=== PATIENT | female | born 1960 | race Caucasian/White ===

== ENCOUNTER 2016-06-29 12:41 | Emergency (ER) | payer SELFPAY ==
[2016-06-29 13:05] VITALS: TEMP 98
--- NOTE | 2016-06-29 13:11 | ED.PDOC ---
History of Present Illness - General Chief Complaint: General Stated Complaint: right 2nd toe and left 2nd toe pain Time Seen by Provider: 06/29/16 13:04 Source: patient, RN notes reviewed, Vital Signs reviewed Exam Limitations: no limitations - History of Present Illness Initial Comments: Patient comes in with c/o bilateral foot pain that has been going on for a while. Recently her R 2nd toe and L great toe have become more painful and the R second toe has developed an open wound that is oozing clear fluid. Timing/Duration: 1 week Severity: mild Improving Factors: nothing Worsening Factors: movement Associated Symptoms: denies symptoms Allergies/Adverse Reactions: Allergies NO KNOWN ALLERGY Allergy (Verified 06/29/16 12:59) Home Medications: Ambulatory Orders Aspirin [Aspirin Adult Low Dose] 81 mg PO DAILY 02/09/15 Lisinopril 20 mg PO DAILY #30 tab 12/01/15 Review of Systems - Review of Systems Constitutional: States: no symptoms reported Cardiology: Denies: edema Musculoskeletal: States: see HPI Skin: States: see HPI Neurological: States: no symptoms reported Past Medical History (General) - Patient Medical History Hx Seizures: No Hx Stroke: No Hx Dementia: No Hx Asthma: No Hx of COPD: No Hx Cardiac Disorders: No Hx Congestive Heart Failure: No Hx Pacemaker: No Hx Hypertension: Yes Hx Thyroid Disease: No Hx Diabetes: No Hx Gastroesophageal Reflux: No Hx Renal Disease: No Hx Cancer: No Hx of HIV: No Hx Hepatitis C: No Hx MRSA: No Surgical History: Hysterectomy - Vaccination History Hx Tetanus, Diphtheria Vaccination: No Hx Influenza Vaccination: No Hx Pneumococcal Vaccination: No Immunizations Up to Date: No - Social History Hx Tobacco Use: Yes Hx Chewing Tobacco Use: No Hx Alcohol Use: Yes Hx Substance Use: No Hx Substance Use Treatment: No Hx Depression: No Feels Threatened In a Relationship: No Hx Physical Abuse: No Hx Emotional Abuse: No Hx Suspected Abuse: No - Female History Patient is a Female of Child Bearing Age (10 -59 yrs old): Yes Patient : No Family Medical History - Family History Father Family History: No Known Living Status: Hx Cardiac Disease: Yes Hx Family Diabetes: Yes Physical Exam - Physical Exam General Appearance: Alert, Comfortable, No apparent distress, Unkempt, Well Developed, Well Hydrated, Well Nourished Cardiovascular/Chest: normal peripheral pulses Peripheral Pulses: dorsalis pedis,right: 2+, dorsalis pedis,left: 2+, posterior tibialis,right: 2+, posterior tibialis,left: 2+ Extremity: normal range of motion, no pedal edema, inflammation, swelling, other - R second toe: lesion with scab over DIP joint with mild surrounding erythema, tenderness and warmth. L Great Toe: area around nail and distal aspect of toe is erythematous, tender and warm. Neurologic: no motor/sensory deficits, alert, normal mood/affect, oriented x 3 Comments: Vital Signs - 24 hr 06/29/16 13:00 Temperature 98 F Pulse Rate [ 110 H Left Radial] Respiratory 20 Rate Blood Pressure 157/100 [Left Arm] O2 Sat by Pulse 99 Oximetry Progress - Progress Progress: 06/29/16 13:12 Patient with cellulitis of both feet. Would like a shot of antibiotics. Refused Rx for antibiotics because she can't afford to fill it. Will give Rocephin 1gm IM Recommended hot Epson salt soaks of Bilateral feet at least 3X/day Departure - Departure Clinical Impression: Paronychia of great toe, left, Cellulitis of second toe of right foot Open wound of second toe of right foot Qualifiers: Encounter type: initial encounter Qualified Code(s): S91.104A - Unspecified open wound of right lesser toe(s) without damage to nail, initial encounter Time of Disposition: 13:15 Disposition: Discharge to Home or Self Care Condition: Good Departure Forms: ED Discharge - Pt. Copy, Patient Portal Self Enrollment Instructions: DI for Cellulitis -- Adult, DI for Paronychia Diet: resume usual diet Activity: increase activity as tolerated Referrals: Delmi Rodríguez FNP [Primary Care Provider] - 1-2 Weeks Home Medications: Ambulatory Orders Aspirin [Aspirin Adult Low Dose] 81 mg PO DAILY 02/09/15 Lisinopril 20 mg PO DAILY #30 tab 12/01/15 Additional Instructions: Hot Epson Salt soaks - 3X/day for at least 20 minutes.
[2016-06-29] MEDS ORDERED: LIDOCAINE 1% 10 ML VIAL INJ ONE (13:14)
[2016-06-29] MEDS: cefTRIAXone SODIUM 1 GM VIAL IM ONE (13:16)
[2016-06-29 13:46] VITALS: BP 157/60; O2SAT 98
== END 2016-06-29 13:47 | disposition home or self-care (01) ==
LOC: ER 12:41
DX: L03.031 Cellulitis of right toe (principal); L03.032 Cellulitis of left toe; S91.104A Unspecified open wound of right lesser toe(s) without damage to nail, initial encounter; I10 Essential (primary) hypertension; Z87.891 Personal history of nicotine dependence; Z79.82 Long term (current) use of aspirin; Z79.899 Other long term (current) drug therapy; X58.XXXA Exposure to other specified factors, initial encounter